=== PATIENT | male | born 1995 | race African-American/Black ===

== ENCOUNTER 2021-04-20 01:14 | Emergency (ER) | payer SELFPAY ==
[~2021-04-20] VITALS: Ht 177.8 cm; Wt 100.0 kg
[2021-04-20 01:59] LABS: BASOPHILS % 0.4 % (0.0-2.0); EOSINOPHILS % 0.2 % (0.0-5.0); HEMATOCRIT. 44.9 % (42.0-52.0); HEMOGLOBIN. 15.4 g/dL (14.0-18.0); LYMPHOCYTES % 10.6 % (20.0-50.0); MEAN CORPUSCULAR HEMOGLOBIN 28.9 pg (28.0-32.0); MEAN CORPUSCULAR VOLUME 84.5 fL (80.0-94.0); MEAN PLATELET VOLUME 9.1 fl (7.4-10.4); MONOCYTES % 9.2 % (2.0-8.0); NEUTROPHILS % 79.6 % (40.0-76.0); PLATELET 199 x1000/uL (130-400); RED BLOOD CELL COUNT 5.31 mill/uL (4.7-6.1); RED CELL DISTRIBUTION WIDTH 14.9 % (11.6-14.6)
[2021-04-20 02:05] LABS: CHLORIDE 104 mEq/L (98-107)
[2021-04-20 02:09] LABS: ETHANOL BLOOD < 10 mg/dL
[2021-04-20] MEDS ORDERED: OLANZAPINE 10MG TABLET PO SCH (02:30)
[2021-04-20 05:06] LABS: CLARITY URINE CLEAR (CLEAR); COLOR URINE YELLOW (YELLOW); KETONES URINE 2+ (NEGATIVE); LEUKOCYTE ESTERASE URINE NEGATIVE (NEGATIVE); NITRITE URINE NEGATIVE (NEGATIVE); OCCULT BLOOD URINE TRACE (NEGATIVE); PH URINE 5.5 (4.5-8.0); PROTEIN URINE NEGATIVE (NEGATIVE); SPECIFIC GRAVITY URINE 1.014 (1.005-1.030); UROBILINOGEN URINE 0.2 E.U./dL (0.2-1.0)
[2021-04-20 05:30] VITALS: BP 110/75
[2021-04-20 05:30] LABS: *AMPHETAMINES SCREEN URINE NEGATIVE (NEGATIVE); *BARBITURATES SCREEN URINE NEGATIVE (NEGATIVE); *BENZODIAZEPINES SCREEN URINE PRESUMTIVE POSITIVE (NEGATIVE); *COCAINE SCREEN URINE NEGATIVE (NEGATIVE); METHADONE URINE SCREEN NEGATIVE (NEGATIVE); OPIATES URINE SCREEN NEGATIVE (NEGATIVE); PHENCYCLIDINE URINE SCREEN NEGATIVE (NEGATIVE)
[2021-04-20 05:31] LABS: CANNABINOID URINE SCREEN PRESUMTIVE POSITIVE (NEGATIVE)
[2021-04-20] MEDS ORDERED: OLANZAPINE 5MG TABLET ODT PO SCH (09:00)
== END 2021-04-20 07:55 | disposition left against medical advice (07) ==
LOC: ER 01:14
DX: R45.1 Restlessness and agitation (principal); R46.2 Strange and inexplicable behavior
CPT/HCPCS: 36415; 80053; 80305; 80320; 81003; 82962; 85025; 93005; 99284; Z7610; G0480